=== PATIENT | female | born 1945 | race Caucasian/White ===

== ENCOUNTER → 2018-12-24 | Day surgery (SDC) | payer MEDICARE ==
[2018-12-20 12:07] LABS: BASOPHILS # (AUTO) 0.1 (0.0-0.1); EOSINOPHILS # (AUTO) 0.3 (0.0-0.4); EOSINOPHILS % 3.2 % (0.0-6.0); HEMATOCRIT 36.5 % (34.2-44.1); LYMPHOCYTES % 37.6 % (18.0-39.1); MEAN CORPUSCULAR HEMOGLOBIN 28.9 pg (28-32); MEAN CORPUSCULAR HGB CONC 32.9 g/dL (31-35); MONOCYTES # (AUTO) 0.6 (0.2-0.8); MONOCYTES % 7.1 % (4.4-11.3); NEUTROPHILS % 50.8 % (38.7-80.0); PLATELET COUNT 213 x10e3/uL (140-360); RED BLOOD COUNT 4.15 x10e6/uL (3.6-5.1); RED CELL DISTRIBUTION WIDTH 13.6 % (11.7-14.4)
[2018-12-20 12:24] LABS: ANION GAP 9.8 mmol/L (8-16); BLOOD UREA NITROGEN 15 mg/dL (7-26); BUN/CREATININE RATIO 19 (6-25); CALCIUM 9.4 mg/dL (8.4-10.2); CARBON DIOXIDE 27 mmol/L (22-29); CHLORIDE 106 mmol/L (98-107); CREATININE, SERUM 0.77 mg/dL (0.57-1.11); EST GLOMERULAR FILTRATION RATE > 60 ML/MIN (60-); GLUCOSE 101 mg/dL (74-118); POTASSIUM 3.8 mmol/L (3.5-5.1); SODIUM 139 mmol/L (136-145)
--- NOTE | 2018-12-20 12:45 | Diagnostic Imaging Report ---
Exam: PA and lateral chest radiograph Clinical history: Preoperative clearance Findings: There is no evidence of pulmonary consolidation, pleural effusion, or pneumothorax. The cardiac size is within normal limits. Atherosclerotic calcification of the proximal abdominal aorta is noted. Post operative changes of the lower cervical spine is also noted. Impression: 1. No radiographic evidence of acute cardiorespiratory disease. Signed by: Dr. Mario Otoole MD on 12/20/2018 12:42 PM
[~2018-12-24] MED LIST: ATORVASTATIN CA20 MG PO; BUPIVACAINE HCL 0.5% INJ 30 ML VIAL INJ ONE; CEFAZOLIN SOD 1 GM/NS 50ML 50 ML IV ONE; DEXAMETHASONE SOD PHOS INJ 4 MG/ML VIAL ONE; FENTANYL CITRATE/PF 100MCG/2 ML INJ ONE; IMMUNE SYSTEM PO; KETOROLAC TROMETHAMINE 30 MG/ML VIAL ONE; LIDOCAINE HCL 2% LOCAL INJ 5 ML SDV VIAL INJ ONE; LISINOPRIL20 MG; METFORMIN HCL500 MG PO; METOPROLOL SUCC50 MG PO; MONTELUKAST SOD10 MG PO; NEXIUM20 MG; ONDANSETRON HCL INJ 2MG/ML 2ML 2 MG/ML VIAL ONE; PROPOFOL IV EMULSION 10 MG/ML 20 ML VIAL ONE; SEVOFLURANE INHAL SOLN 250 ML PEN BTL ONE
--- OUTSIDE RECORDS SUMMARY | 2018-12-24 05:36 | XMS REPORT ---
Author Author [facility] Organization [facility] Address Unknown Phone Unavailable Care Team Providers Care Wiener Packer Name Role Phone Chano TORRES Unavailable Unavailable Payers Payer Name Policy Type Policy Number Effective Date Expiration Date Problems This patient has no known problems. Allergies, Adverse Reactions, Alerts Allergy Name Allergy Type Status Severity Reaction(s) Onset Date Inactive Date Treating Clinician Comments No Known Allergies DA Active U 2018-08-10 00:00:00 No Known Allergies DA Active U 2016-08-09 00:00:00 Medications This patient has no known medications. Results Test Description Test Time Test Comments Text Results Atomic Results Result Comments CHEST 2 VIEWS 2018-12-20 12:41:00 [place] [address] Patient Name: GEOFF VOGEL MR #: [id number] : 1945 Age/Sex: 73/F Req #: [id number] Adm Physician: Ordered by: Chano TORRES DP Report #: [id number] Location: OR Room/Bed: Procedure: [id number] DX/CHEST 2 VIEWS Exam Date: 12/20/18 Exam Time: 1220 REPORT STATUS: Signed Exam: PA and lateral chest radiograph Clinical history: Preoperative clearance Findings: There is no evidence of pulmonary consolidation, pleural effusion, or pneumothorax. The cardiac size is within normal limits. Atherosclerotic calcification of the proximal abdominal aorta is noted. Post operative changes of the lower cervical spine is also noted. Impression: 1. No radiographic evidence of acute cardiorespiratory disease. Signed by: Dr. Mario Otoole MD on 12/20/2018 12:42 PM Dictated By: SYEDA OTOOLE MD 1242 Transcribed By: ROXIE on 12/20/18 1242 COPY TO: Chano TORRES DPM - CT HEAD/BRAIN W/O CONT 2018-08-10 16:56:00 Name: GEOFF VOGEL [facility] FSED : 1945 Age/S: 72 / F [address] [facility] [address] Unit #: [id number] Loc: [address] Phys: Sandro Ruth MD [place] [address] Acct: [id number] Dis Date: Status: REG ER PHONE #: Exam Date: 08/10/2018 1650 FAX #: Reason: Dizzy EXAMS: CPT CODE: [id number] CT HEAD/BRAIN W/O CONT 97562 HISTORY: Dizzy TECHNIQUE: Noncontrast 2.[address] of the head. Examination acquired within 24 hours of arrival. Automated exposure control for dose reduction; DLP: 597 mGy-cm. COMPARISON: 05/25/14 FINDINGS: No acute hemorrhage. No CT evidence of acute infarct. Mild periventricular chronic microvascular ischemic changes. Mild parenchymal atrophy. No intracranial mass or mass effect. No hydrocephalus. No extra-axial fluid c ollection. Atherosclerotic vascular calcification of the carotid siphons. Visualized paranasal sinuses are clear. Mastoid air cells and middle ear cavities are clear. Bilateral lens implants. Calvarium and skull base are intact. Degenerative changes of the right temporal mandibular joint. IMPRESSION: No acute intracranial process. No mass or mass effect. Mild findings of chronic microvascular ischemia. Atherosclerotic vascular disease. at 1656 Reported and signed by: Tawanna Buenrostro D.O. CC: Katy StrangeD.; Sandro Ruth MD Technologist:ZAHIRA MCCOLLUM RT(R)(CT) CTDI: DLP: Trnscb Date/Time: 08/10/2018 (1655) [email or web address] Orig Print D/T: S: 08/10/2018 (2766) CTDI: DLP: PAGE 1 Signed Report BASIC METABOLIC PANEL 2018-08-10 16:55:00 SODIUM (test code=NA) 142 mmol/L 128-145 POTASSIUM (test code=K) 3.5 mmol/L 3.5-5.1 CHLORIDE (test code=CL) 102.0 mmol/L 98-107 CARBON DIOXIDE (test code=CO2) 32.1 mmol/L 22-29 ANION GAP (test code=GAP) 11 mmol/L 10-20 GLUCOSE (test code=GLU) 145 mg/dL 70-110 BLOOD UREA NITROGEN (test code=BUN) 17 mg/dL 7-22 GLOMERULAR FILTRATION RATE (test code=GFR) > 60 mL/min >=60 Estimated GFR by using Modified MDRD formula.Chronic kidney disease is defined as either kidney damageor GFR <60 mL/min/1.73 m2 for >3 months. CREATININE (test code=CREAT) 0.64 mg/dL 0.55-1.3 BUN/CREATININE RATIO (test code=BUN/CREA) 26.6 10-20 CALCIUM (test code=CA) 9.6 mg/dL 8.0-10.5 [id number] 16:55:00* Test Item Value Reference Range Comments TROPONIN-I (test code=TROPI) 0.02 ng/mL 0.00-0.056 - XR CHEST 1 [id number] 16:53:00 FAX: Natan Stewart [phone] [place]: [place] [address]: REG FAX: Sandro Ruth [phone] Name: GEOFF VOGEL [facility] FSED : 1945 Age/S: 72/F [address] Unit #: [id number] Loc: [facility]ie[facility] [address] Phys: Sandro Ruth MD [place], [place] [address] Acct: [id number] Dis Date: Status: REG ER PHONE #: Exam Date: 08/10/2018 8256 FAX #: Reason: WEAKNESS EXAMS: CPT CODE: [id number] XR CHEST 1 V 65809 HISTORY: WEAKNESS TECHNIQUE: AP chest x-ray COMPARISON: None FINDINGS: No airspace consolidation or pleural effusion. Cardiomegaly. Atherosclerotic vascular calcification of the thoracic aorta. Degenerative changes of the cervicothoracic spine. Lower cervical fusion. IMPRESSION: No airspace consolidation or pleural effusion. Cardiomegaly. at 1653 Reported and signed by: Tawanna Buenrostro D.O. CC: Natan Dinero M.D.; Sandro Ruth MD Technologist: ZAHIRA MUÑOZ(R)(CT) Trnscrd Date/Time/By: 08/10/2018 (5518) : By: [email or web address] Orig Print D/T: S: 08/10/2018 (8367) PAGE 1 Signed Report BASIC METABOLIC [id number] 16:47:00* Test Item Value Reference Range Comments SODIUM (test code=NA) 142 mmol/L 128-145 POTASSIUM (test code=K) 3.5 mmol/L 3.5-5.1 CHLORIDE (test code=CL) 102.0 mmol/L 98-107 CARBON DIOXIDE (test code=CO2) 32.1 mmol/L 22-29 ANION GAP (test code=GAP) 11 mmol/L 10-20 GLUCOSE (test code=GLU) 145 mg/dL 70-110 BLOOD UREA NITROGEN (test code=BUN) 17 mg/dL 7-22 GLOMERULAR FILTRATION RATE (test code=GFR) > 60 mL/min >=60 Estimated GFR by using Modified MDRD formula.Chronic kidney disease is defined as either kidney damageor GFR <60 mL/min/1.73 m2 for >3 months. CREATININE (test code=CREAT) 0.64 mg/dL 0.55-1.3 BUN/CREATININE RATIO (test code=BUN/CREA) 26.6 10-20 CALCIUM (test code=CA) 9.6 mg/dL 8.0-10.5 [id number] 16:47:00* Test Item Value Reference Range Comments TROPONIN-I (test code=TROPI) ng/mL 0-0.045 URINALYSIS [id number] 16:44:00* Test Item Value Reference Range Comments UA COLOR (test code=COLU) YELLOW YELLOW UA APPEARANCE (test code=APPU) SLIGHTLY CLOUDY CLEAR UA GLUCOSE DIPSTICK (test code=DGLUU) 300-500 (3+) mg/dL NEGATIVE UA BILIRUBIN DIPSTICK (test code=BILU) NEGATIVE NEGATIVE UA KETONE DIPSTICK (test code=KETU) NEGATIVE mg/dL NEGATIVE UA SPECIFIC GRAVITY (test code=SGU) 1.010 1.001-1.035 UA BLOOD DIPSTICK (test code=LORENZA) TRACE NEGATIVE UA PH DIPSTICK (test code=MADHAV) 7.5 5.0-8.0 UA PROTEIN DIPSTICK (test code=PROU) NEGATIVE mg/dL Neg-15 UA UROBILINIOGEN DIPSTICK (test code=URO) 0.2 mg/dL 0.0-0.2 UA NITRITE DIPSTICK (test code=UGO) POSITIVE NEGATIVE UA LEUKOCYTE ESTERASE DIPSTICK (test code=LEUU) 1+ uL NEGATIVE UA MICROSCOPIC NEEDED? (test code=UAMICRO) YES UA WBC (test code=WBCU) 10-20 per HPF 0-5 UA RBC (test code=RBCU) 0-3 per HPF 0-5 UA EPITHELIAL CELLS (test code=EPIU) Moderate (5-10/hpf) per HPF Few UA BACTERIA (test code=BACU) MANY per HPF NONE Urine Source? Clean CatchCBC W/O [id number] 16:39:00* Test Item Value Reference Range Comments WHITE BLOOD CELL (test code=WBC) 6.6 K/mm3 4.5-12.5 RED BLOOD CELL (test code=RBC) 4.43 mill/mm3 3.7-5.2 HEMOGLOBIN (test code=HGB) 12.4 gram/dL 11.5-15.5 HEMATOCRIT (test code=HCT) 38.1 % 36.0-46.0 MEAN CELL VOLUME (test code=MCV) 86.0 fL 80-98 MEAN CELL HGB (test code=MCH) 28.0 picogram 27.0-33.0 MEAN CELL HGB CONCETRATION (test code=MCHC) 32.5 gram/dL 33.0-36.0 RED CELL DISTRIBUTION WIDTH (test code=RDW) 14.1 % 11.6-16.2 RED CELL DISTRIBUTION WIDTH SD (test code=RDW-SD) 45.0 fL 37.0-51.0 PLATELET COUNT (test code=PLT) 190 K/mm3 150-450 MEAN PLATELET VOLUME (test code=MPV) 9.9 fL 6.7-11.0 URINALYSIS [id number] 16:38:00* Test Item Value Reference Range Comments UA COLOR (test code=COLU) YELLOW YELLOW UA APPEARANCE (test code=APPU) SLIGHTLY CLOUDY CLEAR UA GLUCOSE DIPSTICK (test code=DGLUU) 300-500 (3+) mg/dL NEGATIVE UA BILIRUBIN DIPSTICK (test code=BILU) NEGATIVE NEGATIVE UA KETONE DIPSTICK (test code=KETU) NEGATIVE mg/dL NEGATIVE UA SPECIFIC GRAVITY (test code=SGU) 1.010 1.001-1.035 UA BLOOD DIPSTICK (test code=LORENZA) TRACE NEGATIVE UA PH DIPSTICK (test code=MADHAV) 7.5 5.0-8.0 UA PROTEIN DIPSTICK (test code=PROU) NEGATIVE mg/dL Neg-15 UA UROBILINIOGEN DIPSTICK (test code=URO) 0.2 mg/dL 0.0-0.2 UA NITRITE DIPSTICK (test code=UGO) POSITIVE NEGATIVE UA LEUKOCYTE ESTERASE DIPSTICK (test code=LEUU) 1+ uL NEGATIVE UA MICROSCOPIC NEEDED? (test code=UAMICRO) UA WBC (test code=WBCU) per HPF 0-5 UA RBC (test code=RBCU) per HPF 0-5 UA EPITHELIAL CELLS (test code=EPIU) per HPF Few UA BACTERIA (test code=BACU) per HPF NONE Urine Source? Clean Catch
[2018-12-24 09:23] VITALS: BP 142/61
--- NOTE | 2018-12-24 15:47 | Operative Report ---
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 PLANNED PROCEDURE: Right resection of 2nd metatarsal head with implant placement. SURGEON: Norris Judd DPM (Charley) AIRPORT REFUELING HANDLER: Juliann Zazueta DPM ANESTHESIA: General with a postoperative block consisting of a 10 mL of 0.5% Marcaine plain. HEMOSTASIS: Pneumatic thigh tourniquet set at 350 mmHg for a total time of approximately 30 minutes. MATERIALS: One Arthrosurface HemiCAP resurfacing system, a 12 mm articular component, 2 mm x 3 mm offset, 3-0 Vicryl, 4-0 nylon. ESTIMATED BLOOD LOSS: Less than 10 mL. PATHOLOGY: None. PROCEDURE NOTE: The patient was seen in the preoperative waiting room with the correct procedure and site was identified. The patient was brought to the operating room, placed on the operating table in the supine position. General anesthesia was initiated. At this time, a well-padded pneumatic tourniquet was placed about the patient's left thigh. The left foot, ankle, and leg was then scrubbed, prepped, and draped in the usual aseptic manner. The left foot, ankle, and leg was exsanguinated with an Esmarch bandage and the pneumatic thigh tourniquet was inflated to 350 mmHg for a total time of approximately 30 minutes. Attention was directed to the distal aspect of the patient's left foot, where a 5 cm linear incision was made directly over the 2nd metatarsophalangeal joint extending to the level of the midshaft to the proximal phalanx and the distal shaft of the metatarsal head. The incision was carried through subcutaneous tissue them from deep or underlying structures. The extensor tendon was retracted laterally. All neural and vascular structures were identified and retracted medially and laterally. The incision was then carried down to the level of the joint with a linear capsulotomy. The capsule and deep tissue reflected medial and laterally to allow for good visualization of the joint. Utilizing McGlamry elevator, the joint was freed of all capsular ligamentous attachments. It should be noted that a significant amount of osteoarthritis and necrosis was noted to the distal aspect of the 1st metatarsal head as well as the base of the proximal phalanx. At this time per manufacture protocol, a guidewire was placed into the distal aspect of the 2nd metatarsal head. Confirmed to be in correct location with intraoperative fluoroscopy. Then, per manufacture protocol was drilled, reamed, and tapped appropriately. The post for the implant was screwed into place. Utilizing the temporary sizer, the remainder of the 2nd metatarsal head was remodeled to allow for anatomic alignment. Next, the wound was copiously irrigated with sterile saline. Next, per manufacture protocol with a suction device, the implant was placed onto the 2nd metatarsal head and tapped appropriately, this was confirmed via intraoperative fluoroscopy. The wound was again copiously irrigated with sterile saline. Capsule and deep tissue were reapproximated with 3-0 Vicryl, subcutaneous tissue with 0 Vicryl, and the skin was closed using running interlocking stitch with 4-0 nylon. The incision site was then dressed with Adaptic, 4x4s, Kerlix, and Unna boot followed by Webril and an Jesus wrap. The patient tolerated the procedure and anesthesia well. The patient was transferred to the postoperative recovery with vital signs stable and vascular status intact. The patient is monitored there for a short period of time before being sent home with the following written and oral instructions: 1. Keep the dressing clean, dry, and intact. 2. The patient has remained 100% nonweightbearing to the left lower extremity to avoid any ambulation until being seen in the office. 3. The patient was given the office number and instructed to contact us if any problems arise. Dictated by Juliann Zazueta DPM S CATHERINE Crain (Charley)/STANFORDL /[id number]
== END | disposition home or self-care (01) ==
LOC: OR 05:32
PROVIDERS: ATTEND Podiatrist Foot & Ankle Surgery
DX: M87.875 Other osteonecrosis, left foot (principal); M19.071 Primary osteoarthritis, right ankle and foot; E11.9 Type 2 diabetes mellitus without complications; I10 Essential (primary) hypertension; E78.00 Pure hypercholesterolemia, unspecified; K21.9 Gastro-esophageal reflux disease without esophagitis; K58.9 Irritable bowel syndrome, unspecified; Z01.810 Encounter for preprocedural cardiovascular examination; Z01.812 Encounter for preprocedural laboratory examination; Z01.818 Encounter for other preprocedural examination; Z79.84 Long term (current) use of oral hypoglycemic drugs
CPT/HCPCS: 28899; 36415 ×2; 71046; 80048; 82948; 85025; 93005; J0690; J1100; J1885; J2001; J2405; J2704; J3010; C1713